=== PATIENT | male | born 1990 | race Caucasian/White ===

== ENCOUNTER 2016-10-23 20:24 | Emergency (ER) | payer OTHER ==
[2016-10-23 20:29] VITALS: BP 120/75; PULSE 72; TEMP 97.8; BMI 26.1
--- NOTE | 2016-10-23 20:34 | PDOC ---
History of Present Illness - General Chief Complaint: Ear Problem Stated Complaint: EAR PROBLEM Time Seen by Provider: 10/23/16 20:33 History Source: Patient Exam Limitations: No Limitations - History of Present Illness Initial Comments: CHIEF COMPLAINT: 26 y/o afebrile male with no significant PMH c/o inability to hear from left ear today. HISTORY OF PRESENT ILLNESS: The patient denies f/c, n/v/d, discharge/bleeding from ears. He does admit to using Q-tips every day. Vital signs on arrival are within normal limits. REVIEW OF SYSTEMS: GENERAL/CONSTITUTIONAL: No fever/chills. No weakness. No weight change. HEAD, EYES, EARS, NOSE AND THROAT: No change in vision. +loss of hearing in left ear. No sore throat. MUSCULOSKELETAL: No joint or muscle swelling or pain. No neck or back pain. SKIN: No rash or easy bruising. NEUROLOGIC: No headache, vertigo, loss of consciousness, or loss of sensation. PHYSICAL EXAM: GENERAL: The patient is awake, alert, and fully oriented, in no acute distress. HEAD: Normal with no signs of trauma. ENT: Pupils equal, round and reactive to light, extraocular movements intact, sclera anicteric, conjunctiva clear. Neck supple. Left ear canal filled with dark orange cerumen NEUROLOGICAL: Normal speech, normal gait. CN II-XII grossly intact. SKIN: Warm, dry, normal turgor, no rashes or lesions noted. Past History - Past Medical History Allergies/Adverse Reactions: Allergies Allergy/AdvReac Type Severity Reaction Status Date / Time No Known Allergies Allergy Verified 10/23/16 20:26 Home Medications: Ambulatory Orders NK [No Known Home Medication] 10/23/16 Asthma: Yes GI Disorders: Yes Suicide Attempt (Hx): No - Immunization History Td Vaccination: No TDAP Vaccination: No Immunization Up to Date: Yes - Psycho/Social/Smoking Cessation Hx Anxiety: No Suicidal Ideation: No Smoking History: Never smoked Have you smoked in the past 12 months: No Hx Alcohol Use: No Drug/Substance Use Hx: (marijuana) Substance Use Type: Marijuana *Physical Exam - Vital Signs Last Vital Signs Temp Pulse Resp BP Pulse Ox 97.8 F 72 18 120/75 98 10/23/16 20:27 10/23/16 20:27 10/23/16 20:27 10/23/16 20:27 10/23/16 20:27 Medical Decision Making - Medical Decision Making A/P: 26 y/o afebrile male with left cerumen impaction. Used hydrogen peroxide to flush the left ear multiple times. A copious amount of soft orange cerumen was removed from the left ear canal. The patient felt slightly dizzy and nauseous after the procedure so he laid down in the ER for a little while and then felt better. He admits he can now hear clearly from his left ear. Suggested he buy Debrox from a local pharmacy and put in a few drops daily to help keep ear wax loose. Strongly encouraged him to avoid using Q-tips and return to the ER with any worsening or concerning symptoms. The patient verbalizes understanding of all instructions, has no further questions and is awaiting discharge. *DC/Admit/Observation/Transfer Diagnosis at time of Disposition: Cerumen impaction Qualifiers: Laterality: left Qualified Code(s): H61.22 - Impacted cerumen, left ear - Discharge Dispostion Disposition: HOME Condition at time of disposition: Improved - Patient Instructions Printed Discharge Instructions: DI for Cerumen Impaction Additional Instructions: Discharge Instructions: -Do not use Q-tips -Apply a few drops of DeBrox to both ears daily to help keep ear wax soft and draining on its own -Return to the ER with any worsening or concerning symptoms.
== END 2016-10-23 21:02 | disposition home or self-care (01) ==
LOC: JERFT 20:24
PROC: 3E1B78Z Irrigation of Ear using Irrigating Substance, Via Natural or Artificial Opening (ICD-10-PCS; principal; 2016-10-23)
DX: H61.22 Impacted cerumen, left ear (principal)
CPT/HCPCS: 99281-25